=== PATIENT | male | born 1970 | race Caucasian/White ===

== ENCOUNTER 2018-10-23 18:23 | Inpatient (IN) | payer OTHER ==
[~2018-10-23] VITALS: Ht 175.3 cm; Wt 107.0 kg
[2018-10-23] MEDS ORDERED: SODIUM CHLORIDE 0.9% 1000ML 1,000 ML IV STA ×3 (18:42→20:52)
[2018-10-23] MEDS ORDERED: GLIPIZIDE5 MG PO (18:57)
[2018-10-23] MEDS ORDERED: MELATONIN3 M1 PO (18:59)
[2018-10-23] MEDS ORDERED: OMEPRAZOLE40 MG (18:59)
[2018-10-23] MEDS ORDERED: SIMVASTATIN40 MG PO (18:59)
[2018-10-23] MEDS ORDERED: LISINOPRIL10 MG PO (18:59)
[2018-10-23] MEDS ORDERED: METFORMIN HCL500 MG PO (18:59)
[2018-10-23] MEDS ORDERED: ASPIRIN 81 MG CHEW TAB PO ONE (19:00)
--- NOTE | 2018-10-23 19:00 | NUR ---
REPORT GIVEN TO ACE DUBOIS
[2018-10-23 19:12] LABS: BASOPHILS % 0.3 % (0.0-1.0); HEMATOCRIT 56.9 % (38.2-49.6); HEMOGLOBIN 19.2 g/dL (14.0-18.0); LYMPHOCYTES # (AUTO) 1.3 (1.0-3.2); LYMPHOCYTES % 9.7 % (18.0-39.1); MEAN CORPUSCULAR HEMOGLOBIN 30.7 pg (28-32); MEAN CORPUSCULAR HGB CONC 33.7 g/dL (31-35); MEAN CORPUSCULAR VOLUME 90.9 fL (81-99); MONOCYTES # (AUTO) 0.6 (0.2-0.8); MONOCYTES % 4.6 % (4.4-11.3); NEUTROPHILS # (AUTO) 11.2 (2.1-6.9); NEUTROPHILS % 84.2 % (38.7-80.0); PLATELET COUNT 426 x10e3/uL (140-360); RED BLOOD COUNT 6.26 x10e6/uL (4.3-5.7); RED CELL DISTRIBUTION WIDTH 12.9 % (11.7-14.4)
[2018-10-23 19:19] LABS: AMPHETAMINES SCREEN,URINE NEGATIVE (NEGATIVE); BENZODIAZEPINES SCREEN,URINE NEGATIVE (NEGATIVE); PHENCYCLIDINE SCREEN,URINE NEGATIVE (NEGATIVE)
--- NOTE | 2018-10-23 19:20 | Diagnostic Imaging Report ---
A single frontal view of the chest. HISTORY: Shortness of breath COMPARISON: None available. DISCUSSION: Portable technique, limits sensitivity of the exam. Soft tissue attenuation further limits sensitivity of the exam. Overlying monitoring leads. Tubes/Lines: None Lungs and pleura: The lungs are well inflated. No evidence of a consolidative pneumonia or pulmonary alveolar edema. No definite pleural effusion or pneumothorax is identified. Heart and mediastinum: The cardiomediastinal silhouette appears unremarkable. Bones and soft tissues: Appear unremarkable, given this limited exam. IMPRESSION: No acute radiographic abnormality. Signed by: Dr. Gary Batista D.O., M.M.M. on 10/23/2018 7:17 PM
[2018-10-23 19:30] LABS: ALANINE AMINOTRANSFERASE 37 IU/L (0-55); ALBUMIN 5.5 g/dL (3.5-5.0); ALBUMIN/GLOBULIN RATIO 1.1 (0.8-2.0); ALKALINE PHOSPHATASE 138 IU/L (40-150); AMYLASE 98 U/L (25-125); ANION GAP 22.6 mmol/L (8-16); BLOOD UREA NITROGEN 43 mg/dL (7-26); BUN/CREATININE RATIO 9 (6-25); CALCIUM 12.1 mg/dL (8.4-10.2); CARBON DIOXIDE 12 mmol/L (22-29); CHLORIDE 98 mmol/L (98-107); CREATINE KINASE 83 IU/L (30-200); CREATININE, SERUM 4.68 mg/dL (0.72-1.25); EST GLOMERULAR FILTRATION RATE 13 ML/MIN (60-); GLUCOSE 377 mg/dL (74-118); LIPASE 57 U/L (8-78); POTASSIUM 5.6 mmol/L (3.5-5.1); SODIUM 127 mmol/L (136-145)
[2018-10-23] MEDS ORDERED: INSULIN REGULAR, HUMAN 100 UNIT/1 ML 3ML VIAL ONE (19:39)
[2018-10-23] MEDS ORDERED: SODIUM CHLORIDE 0.9% 1000ML 1,000 ML ONE (19:39)
[2018-10-23] MEDS ORDERED: INSULIN REGULAR, HUMAN 100 UNIT/1 ML 3ML VIAL IV ONE (19:45)
[2018-10-23 19:53] LABS: B-TYPE NATRIURETIC PEPTIDE2 < 10.0 pg/mL (0-100)
[2018-10-23] MEDS ORDERED: VANCOMYCIN 1GM/NS 250 ML 250 ML IV ONE (20:00)
[2018-10-23 20:12] LABS: ABG HCO3 8 mmol/L (23-28); ABG PCO2 26 mmHg (41-51); ABG PH 7.11 (7.31-7.41); ABG PO2 112 mmHg (80-105)
[2018-10-23] MEDS ORDERED: DIATRIZOATE MEGL/DIATRIZOA SOD 30 ML BTL PO ONE (20:21)
[2018-10-23] MEDS ORDERED: SODIUM CHLORIDE 0.9% 1000ML 1,000 ML IV SCH (20:25)
[2018-10-23] MEDS ORDERED: INSULIN REGULAR, HUMAN 3ML VL 300 UNIT in SODIUM CHLORIDE 0.45% 100 ML 300 ML IV SCH ×2 (20:25)
[2018-10-23] MEDS ORDERED: MAGNESIUM SULF 1GRAM/DEXTROSE 100 ML IV PRN (20:30)
[2018-10-23] MEDS ORDERED: DEXTROSE 50% SYRINGE 50 ML IV PRN (20:30)
[2018-10-23] MEDS ORDERED: POTASSIUM CHLORIDE 20MEQ/100ML 200 ML IV PRN (20:30)
[2018-10-23 20:34] LABS: INR 0.94; PARTIAL THROMBOPLASTIN TIME 26.7 seconds (23.8-35.5); PROTHROMBIN TIME 13.1 seconds (11.9-14.5)
[2018-10-23] MEDS: CEFEPIME 2 GM/NS 0.9% 100 ML 100 ML IV SCH (20:34)
[2018-10-23] MEDS ORDERED: INSULIN REGULAR, HUMAN 3ML VL 100 UNIT in SODIUM CHLORIDE 0.45% 100 ML 100 ML IV SCH ×2 (20:45)
[2018-10-23] MEDS ORDERED: ONDANSETRON HCL INJ 2MG/ML 2ML 2 MG/ML VIAL IV PRN (21:00)
[2018-10-23] MEDS ORDERED: PROMETHAZINE 12.5MG/ NACL 0.9% 12.5 MG/50 ML BAG IV PRN (21:00)
--- OUTSIDE RECORDS SUMMARY | 2018-10-23 21:14 | XMS REPORT ---
Author Author [facility] Address Unknown Phone Unavailable Care Team Providers Care Accreditation Coordinator Name Role Phone Vignesh RODARTE Unavailable Unavailable Problems This patient has no known problems. Allergies, Adverse Reactions, Alerts This patient has no known allergies or adverse reactions. Medications This patient has no known medications. Results Test Description Test Time Test Comments Text Results Atomic Results Result Comments CHEST SINGLE (PORTABLE) 2018-10-23 19:16:00 [facility] [address] [address] Patient Name: VERONICA COVINGTON JR MR #: [id number] : 1970 Age/Sex: 48/M Req #: [id number] Adm Physician: Ordered by: SHARMIN RODARTE MD Report #: [id number] Location: ER Room/Bed: Procedure: [id number] DX/CHEST SINGLE (PORTABLE) Exam Date: 10/23/18 Exam Time: 1900 REPORT STATUS: Signed A single frontal view of the chest. HISTORY: Shortness of breath COMPARISON: None available. DISCUSSION: Portable technique, limits sensitivity of the exam. Soft tissue attenuation further limits sensitivity of the exam. Overlying monitoring leads. Tubes/Lines: None Lungs and pleura: The lungs are well inflated. No evidence of a consolidative pneumonia or pulmonary alveolar edema. No definite pleural effusion or pneumothorax is identified. Heart and mediastinum: The cardiomediastinal silhouette appears unremarkable. Bones and soft tissues: Appear unremarkable, given this limited exam. IMPRESSION: No acute radiographic abnormality. Signed by: Dr. Lonnie Batista D.O., M.M.M. on 10/23/2018 7:17 PM Dictated By: LONNIE BATISTA DO 16 Transcribed By: LIZZ on 10/23/181916 COPY TO: SHARMIN RODARTE MD
[2018-10-23 22:31] LABS: BILIRUBIN,URINE MODERATE (NEGATIVE); CLARITY,URINE CLOUDY (CLEAR); COLOR,URINE YELLOW (YELLOW); KETONES,URINE TRACE (NEGATIVE); LEUKOCYTE ESTERASE ,URINE NEGATIVE (NEGATIVE); NITRITE,URINE NEGATIVE (NEGATIVE); URINE UROBILINOGEN 0.2 mg/dL (0.2 - 1)
[2018-10-23 22:34] LABS: PROTEIN,URINE DIPSTICK 3+ (NEGATIVE)
--- NOTE | 2018-10-23 22:43 | NUR ---
bs 200. insulin drip decreased to 2units per hour per protocol.
[2018-10-23 23:00] LABS: AMMONIUM BIURATE CRYSTALS,UR FEW; BACTERIA,URINE MANY /HPF; EPITHELIAL CELLS,URINE FEW /LPF; TRANSITIONAL EPI CELLS,URINE FEW; URIC ACID CRYSTALS,URINE FEW (FEW)
[2018-10-23 23:24] LABS: CREATININE, SERUM 3.88 mg/dL (0.72-1.25)
--- NOTE | 2018-10-23 23:27 | Diagnostic Imaging Report ---
EXAM: CT Abdomen and Pelvis WITHOUT contrast INDICATION: Abdominal pain, nausea vomiting and diarrhea. Elevated WBC. COMPARISON: None. TECHNIQUE: Abdomen and pelvis were scanned utilizing a multidetector helical scanner from the lung base to the pubic symphysis without administration of IV contrast. Absence of intravenous contrast decreases sensitivity for detection of focal lesions and vascular pathology. Coronal and sagittal reformations were obtained. Routine protocol was performed. IV CONTRAST: None. Withheld due to renal insufficiency. ORAL CONTRAST: 900 cc of Gastrografin water mixture. RADIATION DOSE: Total DLP: 887.58 mGy*cm Estimated effective dose: (DLP x 0.015 x size factor) mSv COMPLICATIONS: None FINDINGS: LINES and TUBES: None. LOWER THORAX: Unremarkable HEPATOBILIARY: The liver is diffuse hypodense compared to the spleen, consistent with diffuse hepatic diffuse hepatic steatosis. No focal hepatic lesions. No biliary ductal dilation. GALLBLADDER: No radio-opaque stones or sludge. No wall thickening. SPLEEN: No splenomegaly. PANCREAS: No focal masses or ductal dilatation. ADRENALS: No adrenal nodules KIDNEYS/URETERS: No hydronephrosis. No cystic or solid mass lesions. Punctate nonobstructing calculus in the interpolar region of the left kidney on coronal image 74. GI TRACT: No abnormal distention, wall thickening, or evidence of bowel obstruction. There few scattered diverticula in the sigmoid colon without evidence of diverticulitis. Appendix is normal. PELVIC ORGANS/BLADDER: No gross abnormality within limitations due to artifact from bilateral hip prosthesis. LYMPH NODES: No lymphadenopathy. VESSELS: There is mild atherosclerotic disease in the aorta and major arterial branches. PERITONEUM / RETROPERITONEUM: No free air or fluid. BONES: Bilateral total hip replacement. Mild degenerative changes of the imaged thoracolumbar spine. SOFT TISSUES: Unremarkable. IMPRESSION: 1. No acute abdominal pelvic abnormality. 2. Hepatic steatosis. Signed by: Dr. Sherrell Ariza M.D. on 10/23/2018 11:24 PM
[2018-10-23 23:30] VITALS: BP_SYST 109; BP_SYST 119; BP_DIAS 72; BP_DIAS 74
[2018-10-23 23:30] LABS: CALCIUM 9.5 mg/dL (8.4-10.2)
[2018-10-23] MEDS ORDERED: DEXTROSE 5%/0.45% SOD CHL 1,000 ML IV SCH (23:30)
[2018-10-23] MEDS ORDERED: PNEUMOCOCCAL VACCINE POLYVALENT 23 MCG/0.5 ML VIAL IM SCH (23:52)
[2018-10-23 23:54] VITALS: BP 109/72
[2018-10-23 23:59] VITALS: BP 109/72
[2018-10-24] VITALS (21 sets, daily range): BP systolic 77–134; BP diastolic 46–93
[2018-10-24 02:54] LABS: CREATINE KINASE 90 IU/L (30-200)
[2018-10-24 03:16] LABS: ANION GAP 18.5 mmol/L (8-16); CALCIUM 9.9 mg/dL (8.4-10.2); CREATININE, SERUM 4.1 mg/dL (0.72-1.25); MAGNESIUM 2.2 MG/DL (1.3-2.1); POTASSIUM 4.5 mmol/L (3.5-5.1)
[2018-10-24] MEDS: SODIUM CHLORIDE 0.9% 1000ML 1,000 ML IV SCH ×4 (03:49→21:50)
[2018-10-24 05:06] LABS: BASOPHILS % 0.3 % (0.0-1.0); HEMATOCRIT 51.2 % (38.2-49.6); HEMOGLOBIN 16.6 g/dL (14.0-18.0); LYMPHOCYTES # (AUTO) 2.5 (1.0-3.2); LYMPHOCYTES % 16.7 % (18.0-39.1); MEAN CORPUSCULAR HEMOGLOBIN 30.5 pg (28-32); MEAN CORPUSCULAR HGB CONC 32.4 g/dL (31-35); MONOCYTES # (AUTO) 1.4 (0.2-0.8); MONOCYTES % 9.5 % (4.4-11.3); NEUTROPHILS # (AUTO) 10.9 (2.1-6.9); NEUTROPHILS % 72.6 % (38.7-80.0); PLATELET COUNT 357 x10e3/uL (140-360); RED BLOOD COUNT 5.45 x10e6/uL (4.3-5.7); RED CELL DISTRIBUTION WIDTH 13.1 % (11.7-14.4)
[2018-10-24 05:10] LABS: MEAN CORPUSCULAR VOLUME 93.9 fL (81-99)
[2018-10-24 05:36] LABS: CREATINE KINASE MB 2.5 ng/mL (0-5.0)
[2018-10-24 05:39] LABS: ANION GAP 19.9 mmol/L (8-16); CREATININE, SERUM 4.23 mg/dL (0.72-1.25); MAGNESIUM 2.3 MG/DL (1.3-2.1); POTASSIUM 4.9 mmol/L (3.5-5.1)
[2018-10-24] MEDS: CEFEPIME 2 GM/NS 0.9% 100 ML 100 ML IV SCH ×2 (08:27→19:54)
--- NOTE | 2018-10-24 08:48 | NUR ---
CONSULTS CALLED FOR DR. LITTLE AND .
[2018-10-24 08:54] LABS: ANION GAP 16.5 mmol/L (8-16); CALCIUM 9.9 mg/dL (8.4-10.2); CREATININE, SERUM 4.31 mg/dL (0.72-1.25); MAGNESIUM 2.3 MG/DL (1.3-2.1); POTASSIUM 4.5 mmol/L (3.5-5.1)
[2018-10-24] MEDS ORDERED: SODIUM BICARBONATE 8.4% SYRING 150 ML in STERILE WATER IV SOLN 1,000 ML IV ONE (10:00)
[2018-10-24] MEDS: LIDOCAINE 5% PATCH TP SCH (10:14)
[2018-10-24] MEDS ORDERED: VITAMIN B-121000 MCG PO (10:20)
[2018-10-24] MEDS ORDERED: alogliptin PO (10:20)
[2018-10-24] MEDS ORDERED: PRAZOSIN HCL2 MG PO (10:20)
[2018-10-24] MEDS ORDERED: FLUOXETINE HCL20 M1 PO (10:20)
--- NOTE | 2018-10-24 13:20 | NUR ---
WOUND CARE PUP SCREEN Eduardo Score: 20 PUP: Conservative LOS: 13 Hours Age: 48 VISCO mattress HOB < 30 Degrees Patient Position: Back PATIENT VISIT / SKIN CHECK: No Pressure Ulcers Identified. Up ad Nicole. No Limitations. Able to turn and reposition self. RECOMMENDATION: - Continue Conservative PUP Addendum: 10/24/18 at 1320 by Frank Nelson RN Amended: Links added.
[2018-10-24 13:58] LABS: CREATINE KINASE 144 IU/L (30-200)
--- NOTE | 2018-10-24 14:47 | NUR ---
Nutrition Screen Note RD Recommendation for Physician: -Rec ADAT to GI soft/ ADA 1800 -Handouts on diabetic diet was provided Plan of Care: RD following, monitoring for tolerance and adequacy Nutrition reason for involvement: Diagnosis Primary Diagnose(s): Acute renal failure, DKA, dehydration PMH: DM Ht: 69in Wt: 235lb BMI: 34.7kg/m2 IBW: 160lb RD Assessment: (10/24) Chart reviewed. Labs and meds reviewed. 48yo M, who was admitted for nausea, vomiting and diarrhea x 3 days. Visited pt in the room. Pt tolerated clear liquid without any nausea or vomiting. Pt still has diarrhea today. 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 Weight has been stable at 235lbs. Currently on IVF @150mL/hr and insulin. RD offered diabetic education but pt was not interested. Handouts were provided. Will continue to monitor and follow. Current Diet: clear liquid Malnutrition Evaluation (10/24/2018) The patient does not meet criteria for a specified degree of malnutrition at this time. Will re-evaluate at follow-up as appropriate. Diet Education Needs Assessment: Diet education indicated, pt was not interested. Nutrition Care Level: low Signed: Isabel Giordano, MS, RD, LD
--- NOTE | 2018-10-24 15:40 | Consultation ---
DATE OF CONSULTATION: 10/24/2018 Renal Consultation REASON FOR CONSULTATION: Acute kidney injury, acidosis. HISTORY OF PRESENT ILLNESS: A 48-year-old male with history of diabetes, hypertension, presented to [facility] with nausea, vomiting, and diarrhea. The patient was in his usual state of health until this past weekend after crawfish boil, he started having diarrhea, noted more than 12 times in one day as well as nausea and vomiting. The patient became weaker and weaker and eventually was brought to the emergency room by his . The patient denies ever having any kidney disease in the past and denies taking anything over the counter, specifically NSAIDs. The patient was short of breath and at this time is not having any shortness of breath, nausea, vomiting. He continues to have diarrhea. REVIEW OF SYSTEMS: A 14-point review of systems completed. All systems negative other than mentioned in the HPI. PAST MEDICAL HISTORY: 1. Diabetes. 2. Hypertension. 3. Dyslipidemia. 4. Depression. 5. PTSD. PAST SURGICAL HISTORY: Bilateral hip replacement. SOCIAL HISTORY: No tobacco. No alcohol. Chews tobacco. Works as a patrol police lieutenant. FAMILY HISTORY: No family history of kidney disease. ALLERGIES: NO KNOWN DRUG ALLERGIES. CURRENT MEDICATIONS: See list, includes normal saline at 100. PHYSICAL EXAMINATION: VITALS: Blood pressure 114/57, pulse 95, respiratory rate 22, temperature 98.4. GENERAL: No apparent distress. HEENT: Oropharynx is clear. No scleral icterus. No peripheral edema. Oropharynx with dry mucosa. NECK: Supple. No elevation in jugular venous pressure. No lymphadenopathy. CHEST: Clear to auscultation anteriorly bilaterally. CARDIOVASCULAR: Regular rhythm. No murmurs or rubs. ABDOMEN: Soft. Positive bowel sounds. No tenderness. No rebound. EXTREMITIES: No edema, no clubbing, no cyanosis. SKIN: Warm. IMAGING: Chest x-ray clear. CT abdomen and pelvis without contrast shows no acute abdominal pelvic abnormality, kidneys show no hydronephrosis, punctate nonobstructing calculus in the left kidney. LABS: Sodium 132; potassium 4.5; chloride 110; CO2 of 10, was 9; BUN 48; creatinine 4.31; estimated GFR 15; calcium 10; magnesium 2.3. Troponin 0.01. Albumin 5.5. BNP less than 10. Lactic acid 24.6, down to 13.5. White count 15; hemoglobin 16, was 19.2; platelets 357. Urine; specific gravity greater than 1.030, 3+ protein, 1+ glucose, hyaline casts. ASSESSMENT AND PLAN: 1. Acute kidney injury, suspect secondary to volume depletion plus or minus diabetic ketoacidosis from acute tubular necrosis from severe volume depletion and diabetic ketoacidosis. Continue with aggressive IV fluids. We will check urine studies. CT scan with no evidence of obstruction. No indication at this time for renal replacement therapy. 2. Metabolic acidosis versus both anion gap and non-anion gap acidosis secondary to severe diarrhea, kidney failure, and diabetic ketoacidosis. Pt also on metformin. We will give 1 L of bicarbonate and continue to follow with q.4 h. labs. 3. Hyponatremia secondary to kidney failure and hyperglycemia. Correct no faster than 0.5 mmol/L per hour. 4. Volume depletion. We will give IV fluids as above. 5. Leukocytosis, on broad-spectrum antibiotics. Cultures pending. 6. Diabetes, diabetic ketoacidosis. Continue insulin drip. MD CHARLIE Aparicio/MODL /[id number] BRIANNA
[2018-10-24 16:18] LABS: ANION GAP 15.3 mmol/L (8-16); CALCIUM 9.6 mg/dL (8.4-10.2); CREATININE, SERUM 4.38 mg/dL (0.72-1.25); MAGNESIUM 2.4 MG/DL (1.3-2.1); POTASSIUM 4.3 mmol/L (3.5-5.1)
[2018-10-24] MEDS ORDERED: SODIUM BICARBONATE 8.4% 150 ML in STERILE WATER IV SOLN 1,000 ML IV SCH ×2 (17:00→17:15)
[2018-10-24] MEDS ORDERED: MELATONIN 5 MG TABLET PO PRN (19:15)
[2018-10-24 19:52] LABS: CREATININE,URINE RANDOM 193.93 mg/dL (63-166); TOTAL PROTEIN, URINE 47.2 mg/dL (1-14)
[2018-10-24] MEDS ORDERED: MELATONIN 3 MG TAB PO SCH (21:00)
[2018-10-24] MEDS ORDERED: SIMVASTATIN 40 MG TAB PO SCH (21:00)
[2018-10-24] MEDS ORDERED: PRAZOSIN HCL 2 MG PO SCH (21:00)
[2018-10-24] MEDS: PRAZOSIN HCL 1 MG CAP PO SCH (21:10)
[2018-10-24 21:11] LABS: BASOPHILS % 0.3 % (0.0-1.0); EOSINOPHILS % 0.3 % (0.0-6.0); HEMOGLOBIN 16.7 g/dL (14.0-18.0); LYMPHOCYTES # (AUTO) 2.1 (1.0-3.2); LYMPHOCYTES % 18.5 % (18.0-39.1); MEAN CORPUSCULAR HGB CONC 34.1 g/dL (31-35); MEAN CORPUSCULAR VOLUME 90.9 fL (81-99); MONOCYTES # (AUTO) 1.3 (0.2-0.8); MONOCYTES % 11.6 % (4.4-11.3); NEUTROPHILS # (AUTO) 7.9 (2.1-6.9); NEUTROPHILS % 68.7 % (38.7-80.0); PLATELET COUNT 298 x10e3/uL (140-360); RED BLOOD COUNT 5.39 x10e6/uL (4.3-5.7); RED CELL DISTRIBUTION WIDTH 13.1 % (11.7-14.4)
--- NOTE | 2018-10-24 21:17 | Consultation ---
DATE OF CONSULTATION: 10/24/2018 Endocrine consultation. The patient of Dr. Lorenzo. HISTORY OF PRESENT ILLNESS: Thank you very much for referring this patient. This is a 48-year-old white male gentleman, who was referred to me for evaluation of uncontrolled diabetes mellitus and diabetic ketoacidosis. The patient came to the hospital with history of nausea, vomiting, abdominal pain, which is getting progressively worse. He also had a coffee-ground emesis. The patient is a known diabetic for almost a couple of years and is taking glyburide and metformin at home. He does have family history of diabetes mellitus. On further evaluation in the hospital, the blood sugar was found to be around 377, and anion gap was 22.4 and his BUN and creatinine were significantly elevated at 43 and 4.6. On physical examination, the patient does not have any other major medical problems except for hyperlipidemia and hypertension. PHYSICAL EXAMINATION: GENERAL: Today, the patient is alert, awake, little bit apprehensive. He is moderately overweight. VITAL SIGNS: His heart rate is around 100. Blood pressure 130/80 mmHg. HEENT EXAMINATION: Essentially unremarkable. Thyroid is palpable. Clinically, he is near euthyroid. CHEST: Bilateral vesicular breathing. No rales heard. CARDIAC: First and second heart sounds. There are no third or fourth heart sound with the systolic grade of 2/6. NEUROLOGIC: The patient has evidence of diabetic sensorimotor neuropathy in both lower extremities. CLINICAL IMPRESSION: Diabetes mellitus type 2, diabetic ketoacidosis, acute on chronic renal failure, hyperlipidemia, and obesity. PLAN: At this time is to continue IV insulin and IV fluids. Monitor his blood sugars closely. We will also do a hemoglobin A1c and thyroid function test and lipid profile. Thanks for referring this patient. I will be following this patient with you. MD DAMASO Blair/ISAMAR /[id number] BRIANNA
[2018-10-24 21:31] LABS: ANION GAP 15.9 mmol/L (8-16); CALCIUM 9.4 mg/dL (8.4-10.2); CREATININE, SERUM 4.33 mg/dL (0.72-1.25); POTASSIUM 3.9 mmol/L (3.5-5.1)
[2018-10-24 21:42] LABS: MAGNESIUM 2.3 MG/DL (1.3-2.1); PHOSPHORUS 7.2 MG/DL (2.3-4.7)
[2018-10-25] VITALS (26 sets, daily range): BP systolic 87–131; BP diastolic 37–88
--- NOTE | 2018-10-25 01:53 | History and Physical ---
HISTORY OF PRESENT ILLNESS: A 48-year-old male, who has a past medical history positive for hypertension and diabetes, came here with vomiting, abdominal pain, diarrhea. He was found to be in diabetic ketoacidosis and kyxvk-bf-tvjxfub renal failure, started on insulin drip and admitted to intensive care unit. REVIEW OF SYSTEMS: CARDIOVASCULAR: No chest pain or palpitation. RESPIRATORY: No shortness of breath. No cough. GASTROINTESTINAL: He has nausea, vomiting, abdominal pain, and diarrhea. GENITOURINARY: No frequency. No dysuria. ALLERGIES: HE IS NOT ALLERGIC TO ANY MEDICATION. SOCIAL HISTORY: He does not smoke. He drinks socially. PAST MEDICAL HISTORY: Diabetes and hypertension. PHYSICAL EXAMINATION: VITAL SIGNS: Blood pressure 107/67, temperature 98.2, heart rate 84 per minute, respiratory rate 25 per minute, oxygen saturation is 99%. HEART: Showed regular rhythm. No murmur or added sound. LUNGS: Clear bilaterally. ABDOMEN: Soft. EXTREMITIES: Show no evidence of cyanosis or hematoma. LABORATORY DATA: On BMP; sodium 130, potassium 4.3, chloride 107, CO2 of 12, BUN 51, creatinine 4.38, glucose 150. On CBC; white blood count 15.0, hemoglobin 16.6, hematocrit 31.2, platelet count 357,000. PT 13.1 INR 0.94, PTT 26.7. AST 19, ALT 37, total bilirubin 1.0, alkaline phosphatase 138. Troponins are negative. Chest x-ray showed no acute radiographic abnormality. Also, CT of the abdomen and pelvis was done, which showed no acute abdominal pelvic abnormality, hepatic steatosis, punctate nonobstructing calculus in the interpolar region of the left kidney. IMPRESSION: 1. Diabetic ketoacidosis. 2. Jdvya-pe-jruncim renal failure stage 4. 3. Obesity. 4. Vomiting. 5. Abdominal pain. 6. Diarrhea. PLAN OF TREATMENT: Continue with insulin drip. Continue cefepime 1 g IV twice a day. Continue potassium and magnesium supplementation as needed. Continue to monitor blood sugar q.2 hours. Continue sodium chloride 150 mL/h until after the blood sugar is 250 and then we are going to change to D5 normal saline. Continue with Zofran 4 mg IV q.4 hours as needed, promethazine 12.5 mg IV as needed. Dr. Augustine has been consulted from the Endocrinology point of view as well from renal point of view. The patient will remain in the ICU until off the insulin drip. MD JARRETT Malave/MODL /[id number]
[2018-10-25] MEDS: SODIUM CHLORIDE 0.9% 1000ML 1,000 ML IV SCH (04:37)
[2018-10-25 04:54] LABS: BASOPHILS % 0.3 % (0.0-1.0); EOSINOPHILS % 0.1 % (0.0-6.0); HEMATOCRIT 45.3 % (38.2-49.6); HEMOGLOBIN 15.2 g/dL (14.0-18.0); LYMPHOCYTES # (AUTO) 1.4 (1.0-3.2); LYMPHOCYTES % 14.7 % (18.0-39.1); MEAN CORPUSCULAR HEMOGLOBIN 30.7 pg (28-32); MEAN CORPUSCULAR HGB CONC 33.6 g/dL (31-35); MEAN CORPUSCULAR VOLUME 91.5 fL (81-99); MONOCYTES # (AUTO) 0.7 (0.2-0.8); MONOCYTES % 7.9 % (4.4-11.3); NEUTROPHILS % 76.3 % (38.7-80.0); PLATELET COUNT 277 x10e3/uL (140-360); RED BLOOD COUNT 4.95 x10e6/uL (4.3-5.7)
[2018-10-25 05:02] LABS: INR 1.03; PARTIAL THROMBOPLASTIN TIME 26.2 seconds (23.8-35.5)
[2018-10-25 05:11] LABS: ALBUMIN/GLOBULIN RATIO 1.1 (0.8-2.0); ANION GAP 17.6 mmol/L (8-16); CALCIUM 8.8 mg/dL (8.4-10.2); CREATININE, SERUM 5.14 mg/dL (0.72-1.25); MAGNESIUM 2.1 MG/DL (1.3-2.1); PHOSPHORUS 7.8 MG/DL (2.3-4.7); POTASSIUM 3.6 mmol/L (3.5-5.1)
[2018-10-25 05:13] LABS: ALBUMIN 3.7 g/dL (3.5-5.0)
--- NOTE | 2018-10-25 05:30 | NUR ---
Offered bath. Refused at this time. States "I'll wait for my ".
[2018-10-25] MEDS: FLUOXETINE HCL 20 MG CAP PO SCH (08:14)
[2018-10-25] MEDS: PANTOPRAZOLE SOD 40 MG TABEC PO SCH (08:14)
[2018-10-25] MEDS: LIDOCAINE 5% PATCH TP SCH (08:14)
[2018-10-25] MEDS: CYANOCOBALAMIN 1,000 MCG TAB PO SCH (08:14)
[2018-10-25] MEDS: CEFEPIME 2 GM/NS 0.9% 100 ML 100 ML IV SCH ×2 (08:23→20:32)
[2018-10-25] MEDS ORDERED: SODIUM BICARBONATE 8.4% 150 ML in STERILE WATER IV SOLN 1,000 ML IV ONE (08:40)
[2018-10-25] MEDS: SODIUM BICARBONATE 8.4% 150 ML in STERILE WATER IV SOLN 1,000 ML IV SCH ×4 (10:30→23:47)
[2018-10-25 12:07] LABS: ANION GAP 17.8 mmol/L (8-16); CREATININE, SERUM 5.17 mg/dL (0.72-1.25); POTASSIUM 3.8 mmol/L (3.5-5.1)
[2018-10-25] MEDS: SEVELAMER CARBONATE 800 MG TAB PO SCH ×2 (12:09→16:30)
[2018-10-25] MEDS ORDERED: LIDOCAINE HCL 1% LOCAL INJ 20 ML VIAL ONE (13:45)
--- NOTE | 2018-10-25 16:06 | Diagnostic Imaging Report ---
Exam: Non tunneled right IJ hemodialysis catheter placement. History:HOMER Comparison: None available Findings: Informed consent was obtained from the patient after a formal timeout. Ultrasound was utilized for puncture of the right internal jugular vein following sterile preparation with full barrier technique and 1% lidocaine. Permanent record for the radiologic record was obtained and stored. Following puncture with a 21-gauge skinny needle a 0.018 " wire was placed and then a micropuncture sheath. Fluoroscopy was utilized to ascertain wire placement. Through the micropuncture sheath a 0.035 " Amplatz superstiff wire was placed centrally. Serial dilatation was accomplished. A 13 Singaporean 20 cm long non tunneled hemodialysis catheter was then placed over the Amplatz superstiff wire. Patient tolerated the procedure well. Fluoroscopy time: 0.1 min Total dose: 0.154 Gy.cm2 Impression: 1. Right IJ non tunneled hemodialysis catheter placement utilizing ultrasound and fluoroscopy. 2. The line is okay for immediate use. Signed by: Dr. Cyril Jiang DO on 10/25/2018 4:02 PM
[2018-10-25 16:59] LABS: ANION GAP 17.3 mmol/L (8-16); CALCIUM 8.7 mg/dL (8.4-10.2); CREATININE, SERUM 4.48 mg/dL (0.72-1.25); MAGNESIUM 2.1 MG/DL (1.3-2.1); POTASSIUM 3.3 mmol/L (3.5-5.1)
[2018-10-25] MEDS ORDERED: DIPHENOXYLATE/ATROPINE TAB PO PRN (17:30)
[2018-10-25] MEDS: LOPERAMIDE HCL 2 MG CAP PO PRN ×2 (17:46→23:10)
[2018-10-25] MEDS ORDERED: POTASSIUM CHLORIDE 20 MEQ TAB CR PO SCH (18:00)
--- NOTE | 2018-10-25 19:08 | Progress Note ---
DATE: Internal Medicine Progress Note SUBJECTIVE: The patient is off the insulin drip. He is on Lantus right now complaining of diarrhea. OBJECTIVE: VITAL SIGNS: Blood pressure is 122/78, temperature 98.5, heart rate 72 per minute, respiratory rate 16 per minute, and oxygen saturation 100%. HEART: Showed regular rhythm. Normal S1, S2 sound. LUNGS: Clear bilaterally. ABDOMEN: Soft. EXTREMITIES: Show no evidence of cyanosis or hematoma. LABORATORY DATA: On the blood work, we have BMP; sodium 131, potassium 3.8, chloride 105, CO2 12, BUN 56, and creatinine 5.17. Glucose 187. On CBC, white blood count 9.19, hemoglobin 15.2, hematocrit 45.3, and platelet count of 277,000. PT 14.0. INR 1.03. PTT 26.2. AST 14 and ALT 22. Total bilirubin 0.8. Alkaline phosphatase 94. ASSESSMENT: 1. Diabetic ketoacidosis. 2. Acute on chronic renal insufficiency, stage 4-5. 3. Diarrhea. 4. Anemia. 5. Obesity. 6. Gastroesophageal reflux disease. 7. Benign prostatic hypertrophy. 8. Hypertension. PLAN OF TREATMENT: Continue cefepime 2 g IV twice a day, magnesium sulfate as needed, and potassium as needed for hypokalemia. Continue monitoring the sugars q.a.c. and at bedtime. Fluoxetine 60 mg daily, sevelamer 600 mg three times a day, sodium bicarbonate as needed, Protonix 40 mg daily, continue Lantus 10 units at bedtime, D50 push as needed for hypoglycemia, melatonin 5 mg at bedtime, vitamin B12 1000 mcg daily, prazosin 2 mg daily, and Zofran 4 mg IV q.4 hours as needed. The patient had a dialysis catheter placed just in case he needs dialysis. We are going to continue monitoring BUN and creatinine. Lucas Lorenzo MD LAS/MODL /[id number]
[2018-10-25] MEDS: PRAZOSIN HCL 1 MG CAP PO SCH (20:32)
[2018-10-25] MEDS ORDERED: INSULIN GLARGINE 100 UNITS/ML VIAL SQ SCH (21:00)
[2018-10-25 23:09] LABS: ANION GAP 17.3 mmol/L (8-16); CALCIUM 8.7 mg/dL (8.4-10.2); CREATININE, SERUM 3.94 mg/dL (0.72-1.25); MAGNESIUM 1.9 MG/DL (1.3-2.1); POTASSIUM 3.3 mmol/L (3.5-5.1)
[2018-10-26] VITALS (23 sets, daily range): BP systolic 103–140; BP diastolic 49–94
--- NOTE | 2018-10-26 01:15 | NUR ---
Left AC IV infiltrated, IV d/c'ed. 20 g started in left forearm. IV patent, CDI.
[2018-10-26 05:00] LABS: BASOPHILS % 0.5 % (0.0-1.0); EOSINOPHILS # (AUTO) 0.1 (0.0-0.4); EOSINOPHILS % 1.7 % (0.0-6.0); HEMATOCRIT 41.8 % (38.2-49.6); HEMOGLOBIN 14.5 g/dL (14.0-18.0); LYMPHOCYTES % 23.9 % (18.0-39.1); MEAN CORPUSCULAR HEMOGLOBIN 30.3 pg (28-32); MEAN CORPUSCULAR HGB CONC 34.7 g/dL (31-35); MONOCYTES # (AUTO) 1.2 (0.2-0.8); MONOCYTES % 14.1 % (4.4-11.3); NEUTROPHILS # (AUTO) 4.9 (2.1-6.9); PLATELET COUNT 229 x10e3/uL (140-360); RED BLOOD COUNT 4.78 x10e6/uL (4.3-5.7); RED CELL DISTRIBUTION WIDTH 12.5 % (11.7-14.4)
[2018-10-26 05:02] LABS: MEAN CORPUSCULAR VOLUME 87.4 fL (81-99)
[2018-10-26 05:25] LABS: ALBUMIN 3.2 g/dL (3.5-5.0); ANION GAP 14.8 mmol/L (8-16); CALCIUM 8.5 mg/dL (8.4-10.2); CREATININE, SERUM 3.25 mg/dL (0.72-1.25)
[2018-10-26 05:34] LABS: POTASSIUM 2.8 mmol/L (3.5-5.1)
[2018-10-26] MEDS ORDERED: POTASSIUM CHLORIDE 20MEQ/100ML 200 ML ONE (05:42)
[2018-10-26] MEDS: INSULIN REGULAR, HUMAN 3ML VL 100 UNIT in SODIUM CHLORIDE 0.9% 100 ML 100 ML IV SCH ×6 (07:30→13:33)
[2018-10-26] MEDS ORDERED: POTASSIUM CHLORIDE 20 MEQ TAB CR PO NR (08:00)
[2018-10-26] MEDS ORDERED: POTASSIUM CHLORIDE 20MEQ/100ML 100 ML IV ONE (08:00)
[2018-10-26] MEDS: PANTOPRAZOLE SOD 40 MG TABEC PO SCH (08:19)
[2018-10-26] MEDS: FLUOXETINE HCL 20 MG CAP PO SCH (08:19)
[2018-10-26] MEDS: CYANOCOBALAMIN 1,000 MCG TAB PO SCH (08:19)
[2018-10-26] MEDS: CEFEPIME 2 GM/NS 0.9% 100 ML 100 ML IV SCH ×2 (08:28→20:39)
[2018-10-26] MEDS: LIDOCAINE 5% PATCH TP SCH (08:28)
[2018-10-26] MEDS: LOPERAMIDE HCL 2 MG CAP PO PRN (08:29)
[2018-10-26] MEDS ORDERED: INSULIN ASPART 70/30 100 UNITS/ML VIAL SC NR (13:45)
[2018-10-26] MEDS: SODIUM CHLORIDE 0.9% 1000ML 1,000 ML IV SCH (14:00)
[2018-10-26] MEDS ORDERED: INSULIN LISPRO 100 UNIT/1 ML 3ML VIAL SQ ONE (16:00)
[2018-10-26 16:27] LABS: ALBUMIN 3.1 g/dL (3.5-5.0); ANION GAP 11.3 mmol/L (8-16); CALCIUM 8.5 mg/dL (8.4-10.2); CREATININE, SERUM 2.65 mg/dL (0.72-1.25); POTASSIUM 3.3 mmol/L (3.5-5.1)
[2018-10-26] MEDS: INSULIN LISPRO 100 UNIT/1 ML 3ML VIAL SQ SCH ×3 (16:58→20:45)
[2018-10-26] MEDS ORDERED: POTASSIUM CHLORIDE 20 MEQ TAB CR PO SCH (17:30)
--- NOTE | 2018-10-26 20:29 | Progress Note ---
DATE: Internal Medicine Progress Note SUBJECTIVE: The patient is doing well. No significant complaint. PHYSICAL EXAMINATION: HEART: Showed regular rhythm. Normal S1 and S2 sounds. LUNGS: Clear bilaterally. ABDOMEN: Soft. EXTREMITIES: Show no evidence of cyanosis or hematoma. VITAL SIGNS: Blood pressure 109/73, temperature 97.9, heart rate 70 per minute, respiratory rate 16 per minute, oxygen saturation 99%. LABORATORY DATA: On the blood work, we have BMP; sodium 134, potassium 2.8, chloride 104, CO2 of 18, BUN 62, creatinine 3.25, glucose 126. On CBC, white blood count 8.32, hemoglobin 14.5, hematocrit 41.8, platelet count 229,000. PT 14.0, INR 1.03, PTT is 26.2, AST 14, ALT 19, total bilirubin 1.0, alkaline phosphatase 84. IMPRESSION: 1. Diabetes ketoacidosis with chronic renal insufficiency. 2. Chronic renal insufficiency, stage IV to V. 3. Hypokalemia. 4. Obesity. 5. Mild hyponatremia. PLAN OF TREATMENT: 1. We are going to wean him off the insulin drip and after that he can go out of the intensive care unit to the telemetry floor. 2. Continue cefepime twice a day. 3. Continue insulin drip until it will be completely weaned off by Dr. Augustine. 4. Continue fluoxetine 60 mg daily. 5. Continue Lomotil 3 times a day as needed for diarrhea. 6. Continue with Humalog 7 units before each meal and Protonix 40 mg daily, melatonin 5 mg at bedtime. 7. Continue monitoring blood sugar before meals and at bedtime. 8. Continue Lantus at 13 units at bedtime, vitamin B12 1000 mcg daily, prazosin 2 mg daily, Zofran 4 mg IV q.4 hours as needed. 9. Continue potassium replacement and magnesium replacement as needed. 10. Continue monitoring BUN, creatinine and electrolytes. The patient does not meet the criteria for dialysis right now. 11. The hemodialysis catheter most likely will be removed by Dr. Dutta. 12. The patient is doing much better, tolerating a diet. Time spent around 59 minutes. Lucas Lorenzo MD LAS/MODL /[id number]
[2018-10-26] MEDS: PRAZOSIN HCL 1 MG CAP PO SCH (20:39)
[2018-10-26] MEDS: INSULIN GLARGINE 100 UNITS/ML VIAL SQ SCH (20:40)
[2018-10-27] VITALS (14 sets, daily range): BP systolic 121–157; BP diastolic 75–95
[2018-10-27] MEDS: SODIUM CHLORIDE 0.9% 1000ML 1,000 ML IV SCH ×3 (01:29→23:03)
[2018-10-27 05:33] LABS: BASOPHILS % 0.4 % (0.0-1.0); EOSINOPHILS # (AUTO) 0.2 (0.0-0.4); EOSINOPHILS % 2.6 % (0.0-6.0); HEMATOCRIT 39.4 % (38.2-49.6); HEMOGLOBIN 13.9 g/dL (14.0-18.0); LYMPHOCYTES % 26.4 % (18.0-39.1); MEAN CORPUSCULAR HEMOGLOBIN 30.7 pg (28-32); MEAN CORPUSCULAR HGB CONC 35.3 g/dL (31-35); MONOCYTES % 13.5 % (4.4-11.3); NEUTROPHILS # (AUTO) 4.3 (2.1-6.9); NEUTROPHILS % 56.3 % (38.7-80.0); PLATELET COUNT 221 x10e3/uL (140-360); RED BLOOD COUNT 4.53 x10e6/uL (4.3-5.7); RED CELL DISTRIBUTION WIDTH 12.6 % (11.7-14.4)
[2018-10-27 05:37] LABS: INR 0.97; PROTHROMBIN TIME 13.4 seconds (11.9-14.5)
[2018-10-27 05:38] LABS: PARTIAL THROMBOPLASTIN TIME 26.7 seconds (23.8-35.5)
[2018-10-27 05:48] LABS: CALCIUM 8.6 mg/dL (8.4-10.2); CREATININE, SERUM 2.4 mg/dL (0.72-1.25); MAGNESIUM 2.2 MG/DL (1.3-2.1); PHOSPHORUS 2.6 MG/DL (2.3-4.7)
[2018-10-27] MEDS: INSULIN LISPRO 100 UNIT/1 ML 3ML VIAL SQ SCH ×7 (08:04→21:12)
[2018-10-27] MEDS: CEFEPIME 2 GM/NS 0.9% 100 ML 100 ML IV SCH ×2 (08:11→20:09)
[2018-10-27] MEDS: CYANOCOBALAMIN 1,000 MCG TAB PO SCH (08:45)
[2018-10-27] MEDS: FLUOXETINE HCL 20 MG CAP PO SCH (08:45)
[2018-10-27] MEDS: PANTOPRAZOLE SOD 40 MG TABEC PO SCH (08:45)
[2018-10-27] MEDS: LIDOCAINE 5% PATCH TP SCH (08:45)
[2018-10-27] MEDS: LOPERAMIDE HCL 2 MG CAP PO PRN (10:36)
--- NOTE | 2018-10-27 11:23 | NUR ---
HD line removed from right ij per MD order. no s/s bleeding or hematoma noted. pt tolerated line removal well. nsg report given to Peggy RN for transfer to med surg 1 room 106
--- NOTE | 2018-10-27 11:50 | NUR ---
received pt in wheelchair. safely transferred to bed. patient able to ambulate independently. denies pain, Resp even and unlabored. oriented to room and use of call light, call light placed within reach. and brother at bedside.
--- NOTE | 2018-10-27 18:33 | Progress Note ---
DATE: Internal Medicine Progress Note SUBJECTIVE: The patient is doing well. No significant complaint. PHYSICAL EXAMINATION: HEART: Showed regular rhythm. No murmur or added sound. LUNGS: Clear bilaterally. ABDOMEN: Soft. VITAL SIGNS: Blood pressure 157/92, temperature , heart rate 65 per minute, respiratory rate 21 per minute, oxygen saturation 99%. LABORATORY DATA: BMP; sodium 137, potassium 4.0, chloride 108, CO2 of 20, BUN 50, creatinine 2.40, glucose 191. On the CBC, white blood count 7.58, hemoglobin 13.9, hematocrit 39.4, platelet count 251,000, PT 13.4, INR 0.97, PTT 26.7. AST 14, ALT 19, total bilirubin 0.6, alkaline phosphatase 85. IMPRESSION: 1. Diabetic ketoacidosis. 2. Diabetes mellitus type 2 with chronic renal insufficiency. 3. Acute on chronic renal insufficiency stage IV, slowly resolving. 4. Obesity. 5. Vomiting. 6. Abdominal pain. PLAN OF TREATMENT: Continue cefepime 2 g IV twice a day. Continue with monitoring blood sugar before meals and at bedtime. Fluoxetine 60 mg daily. Continue Lomotil 1 tablet three times a day as needed for diarrhea. Continue Humalog 7 units before meals. Continue Protonix 40 mg daily, loperamide 2 mg as needed for diarrhea, melatonin 5 mg at bedtime. Continue with Lantus 13 units at bedtime, prazosin 2 mg at bedtime, vitamin B12 1000 mcg daily, and Zofran 4 mg IV q.4 hours as needed. So far, the patient had a dialysis catheter removed. BUN and creatinine are slowly improving. I reinforced the fact to the patient that the patient is to be on a very strict diabetic diet to try to get a tight control of the blood sugar. Blood sugar should be between 80 and 120 before meals to prevent any farther kidney damage. The patient understands that. We are going to hopefully discharge the patient on prednisone. Diabetes education in progress. MD JARRETT Malave/MODL /[id number]
[2018-10-27] MEDS: PRAZOSIN HCL 1 MG CAP PO SCH (21:09)
[2018-10-27] MEDS: INSULIN GLARGINE 100 UNITS/ML VIAL SQ SCH (21:12)
--- NOTE | 2018-10-27 22:33 | NUR ---
Patient received lying in bed. AAO x 3. Patient had no complaints o pain. Respirations even and non-labored. Fall precautions implemented. Patient instructed to call for assistance when needed. Call light within reach.
[2018-10-28 00:14] VITALS: BP 134/81
[2018-10-28 00:30] VITALS: BP 134/81
[2018-10-28 05:02] VITALS: BP 139/84
[2018-10-28 05:40] LABS: BASOPHILS % 0.4 % (0.0-1.0); EOSINOPHILS # (AUTO) 0.3 (0.0-0.4); EOSINOPHILS % 3.8 % (0.0-6.0); HEMATOCRIT 37.9 % (38.2-49.6); LYMPHOCYTES # (AUTO) 1.6 (1.0-3.2); MEAN CORPUSCULAR HEMOGLOBIN 30.4 pg (28-32); MEAN CORPUSCULAR HGB CONC 34.3 g/dL (31-35); MEAN CORPUSCULAR VOLUME 88.6 fL (81-99); MONOCYTES # (AUTO) 0.9 (0.2-0.8); NEUTROPHILS # (AUTO) 4.1 (2.1-6.9); NEUTROPHILS % 59.2 % (38.7-80.0); PLATELET COUNT 217 x10e3/uL (140-360); RED BLOOD COUNT 4.28 x10e6/uL (4.3-5.7); RED CELL DISTRIBUTION WIDTH 12.4 % (11.7-14.4)
[2018-10-28 06:02] LABS: ANION GAP 11.9 mmol/L (8-16); CALCIUM 8.7 mg/dL (8.4-10.2); CREATININE, SERUM 1.82 mg/dL (0.72-1.25); POTASSIUM 3.9 mmol/L (3.5-5.1)
--- NOTE | 2018-10-28 06:43 | NUR ---
Walking rounds done. Shift report given to oncoming nurse.
[2018-10-28] MEDS: INSULIN LISPRO 100 UNIT/1 ML 3ML VIAL SQ SCH ×4 (07:30→11:25)
[2018-10-28] MEDS: CEFEPIME 2 GM/NS 0.9% 100 ML 100 ML IV SCH (07:35)
[2018-10-28 08:00] VITALS: BP 160/98
[2018-10-28 08:30] VITALS: BP 160/98
[2018-10-28] MEDS: CYANOCOBALAMIN 1,000 MCG TAB PO SCH (08:40)
[2018-10-28] MEDS: FLUOXETINE HCL 20 MG CAP PO SCH (08:40)
[2018-10-28] MEDS: PANTOPRAZOLE SOD 40 MG TABEC PO SCH (08:40)
[2018-10-28] MEDS: LIDOCAINE 5% PATCH TP SCH (08:40)
[2018-10-28] MEDS ORDERED: AMLODIPINE BESYLATE 5 MG TAB PO SCH (09:00)
[2018-10-28] MEDS ORDERED: NORVASC5 MG PO (12:16)
[2018-10-28 12:27] VITALS: BP 145/81
--- NOTE | 2018-10-28 12:30 | NUR ---
patient alert and oriented. discharge instructions given at this time, patient verbalized understanding. IV discontinued, catheter in tact and small dressing applied. patient wanting to ambulate out to personal auto for to drive home.
--- NOTE | 2018-10-29 06:29 | Discharge Summary ---
HOSPITAL COURSE: A 48-year-old male with past medical history positive for diabetes, hypertension. The patient came to the hospital on DKA. He was started on insulin drip. His renal insufficiency got worse. He has had a dialysis catheter placed. Then later on, the blood sugar improved. Kidney function improved. The dialysis catheter was removed. The patient was switched to a regimen with Humalog and Lantus. The patient was transferred from the ICU to the medical floor. He is doing a lot better right now. Asymptomatic. The BUN and creatinine are much better. The patient is going home. PHYSICAL EXAMINATION: HEART: Showed regular rhythm. Normal S1, S2 sound. LUNGS: Clear bilaterally. ABDOMEN: Soft. EXTREMITIES: Show no evidence of cyanosis, edema, or trauma. LABORATORY DATA: On the BMP, sodium 138, potassium 3.9, chloride 110, CO2 of 20, BUN 41, creatinine 1.82, glucose 155. On the CBC, white blood count 6.91, hemoglobin 13.0, hematocrit 37.9, platelet count 217,000. PT is 13.4, INR 0.97, PTT 26.7. AST 14, ALT 19, total bilirubin 0.6, alkaline phosphatase 85. IMPRESSION: 1. Diabetic ketoacidosis with chronic renal insufficiency. 2. Acute on chronic renal failure, stage 3 to 4. 3. Obesity. 4. Hypertension with renal insufficiency. PLAN OF TREATMENT: He is going to be discharged home on the following medications: Protonix 40 mg daily, amlodipine we are going to increase it to 10 mg daily. Continue Lantus 13 units at bedtime and Humalog 7 units before meals. Continue fluoxetine 60 mg daily, prazosin 2 mg daily that he was taking at home. He is taking vitamin B12 1000 mcg daily. Follow up with me in a couple of weeks. Follow up with Dr. Vincent in two weeks. Diet, 1800-calorie ADA, renal diet. The patient already received teaching for diabetes. Lucas Lorenzo MD LAS/MODL /[id number]
== END 2018-10-28 12:48 | disposition home or self-care (01) | DRG 637 ==
LOC: ER 18:23 → ERHOLD 21:08 → ICU 23:03 → MED/SURG 10-27 11:23
PROVIDERS: ADMIT Internal Medicine; ATTEND Internal Medicine
PROC: 05HM33Z Insertion of Infusion Device into Right Internal Jugular Vein, Percutaneous Approach (ICD-10-PCS; principal; 2018-10-25)
DX: E11.10 Type 2 diabetes mellitus with ketoacidosis without coma (principal); N17.0 Acute kidney failure with tubular necrosis; N18.4 Chronic kidney disease, stage 4 (severe); E87.1 Hypo-osmolality and hyponatremia; E86.0 Dehydration; E11.22 Type 2 diabetes mellitus with diabetic chronic kidney disease; I12.9 Hypertensive chronic kidney disease with stage 1 through stage 4 chronic kidney disease, or unspecified chronic kidney disease; E66.9 Obesity, unspecified; Z68.34 Body mass index [BMI] 34.0-34.9, adult; E78.5 Hyperlipidemia, unspecified; R19.7 Diarrhea, unspecified; E87.6 Hypokalemia; E83.52 Hypercalcemia; F41.8 Other specified anxiety disorders; F43.10 Post-traumatic stress disorder, unspecified; F17.220 Nicotine dependence, chewing tobacco, uncomplicated; N40.0 Benign prostatic hyperplasia without lower urinary tract symptoms; D64.9 Anemia, unspecified; E11.42 Type 2 diabetes mellitus with diabetic polyneuropathy; Z79.84 Long term (current) use of oral hypoglycemic drugs
CPT/HCPCS: 36415; 36556; 36600; 71045; 74176; 74470; 76937; 77001; 80048; 80053; 80061; 80307; 81001; 82150; 82550; 82553; 82570; 82805; 82948; 83036; 83605; 83615; 83690; 83735; 83880; 84100; 84156; 84300; 84484; 85025; 85610; 85730; 87040; 87086; 93005; 96374; 99285; C1769; J1815; J2001; J2405; J2550; J3370; J3480; J7030

== ENCOUNTER 2020-04-03 16:23 | Emergency (ER) | payer OTHER ==
[~2020-04-03] VITALS: Ht 175.3 cm; Wt 107.0 kg
[~2020-04-03 16:23] MED LIST: FLUOXETINE HCL20 M1 PO; GLIPIZIDE5 MG PO; LISINOPRIL10 MG PO; MELATONIN3 M1 PO; METFORMIN HCL500 MG PO; NORVASC5 MG PO; OMEPRAZOLE40 MG; PRAZOSIN HCL2 MG PO; SIMVASTATIN40 MG PO; VITAMIN B-121000 MCG PO; alogliptin PO
--- NOTE | 2020-04-03 17:05 | NUR ---
Patient reports to staff that he received a call from his surgeon and he was told to come to the hospital where he had surgery. Patient states he is going to transport himself there. Dr. Chaves made aware and the patient is going to be discharged from here to go there per his surgeon
--- NOTE | 2020-04-03 17:10 | Emergency Department Note ---
History of Present Illnes History of Present Illness Chief Complaint: General Medicine Complaints History of Present Illness This is a 50 year old male Patient in from home with complaints of severe constipation and abdominal pain that started after he had shoulder surgery on Monday03/31/2020. Patient states he has been taking pain medication due to the shoulder surgery. Patient has tried stool softeners, fleet enema, mag citrate and prune juice with no relief. Patient states last bowel movement was Monday evening 03/30/2020. Patient denies history of constipation. Historian: Patient Arrival Mode: Car Lobby Porter Required: No Onset (how long ago): day(s) (3) Location: ABD Quality: CONSTIPATION Radiation: Reports non-radiation Severity: severe Onset quality: gradual Timing of current episode: constant Progression: unchanged Chronicity: new Context: Reports recent surgery; Denies recent illness Relieving factors: none Exacerbating factors: none Associated symptoms: Reports denies other symptoms Past Medical/Family History Physician Review I have reviewed the patient's past medical and family history. Any updates have been documented here. Past Medical History Recent Fever: No Clinical Suspicion of Infectio: No New/Unexplained Change in Ment: No Past Medical History: Hypertension, Diabetes, Anxiety, Depression, Hyperlipedemia Other Medical History: rheumatoid Athritis Past Surgical History: Hip Replacement, Orthopedic Implants Other Surgery: BILATERAL HIP REPLACEMENT Shoulder replacement Social History Smoking Cessation: Former smoker Counseling Performed: No Alcohol Use: Social Any Illegal Drug Use: No TB Exposure/Symptoms: No Physically hurt or threatened: No Family History Family history of heart diseas: No Other Last Tetanus: UTD Any Pre-Existing Lines (PICC,: No Review of Systems Review of Systems Constitutional: Reports no symptoms EENTM: Reports no symptoms Cardiovascular: Reports no symptoms Respiratory: Reports no symptoms Gastrointestinal: Reports as per HPI Genitourinary: Reports no symptoms Musculoskeletal: Reports as per HPI Integumentary: Reports no symptoms Neurological: Reports no symptoms Psychological: Reports no symptoms Endocrine: Reports no symptoms Hematological/Lymphatic: Reports no symptoms Physical Exam Related Data Allergies: Coded Allergies: No Known Allergies (Unverified , 10/23/18) Triage Vital Signs Vital Signs Date Time Temp Pulse Resp B/P (MAP) Pulse Ox O2 Delivery O2 Flow Rate FiO2 04/03/20 16:44 98.6 82 16 110/76 97 Room Air Vital signs reviewed: Yes Physical Exam CONSTITUTIONAL Constitutional: Present well-developed, Present well-nourished HENT HENT: Present normocephalic, Present atraumatic, Present oropharynx clear/moist, Present nose normal HENT L/R: Present left ext ear normal, Present right ext ear normal EYES Eyes: Reports PERRL, Reports conjunctivae normal NECK Neck: Present ROM normal PULMONARY Pulmonary: Present effort normal, Present breath sounds normal CARDIOVASCULAR Cardiovascular: Present regular rhythm, Present heart sounds normal, Present capillary refill normal, Present normal rate GASTROINTESTINAL Abdominal: Present soft, Present bowel sounds normal, Present tender (MILD DIFFUSE TTP, NO R/G) GENITOURINARY Genitourinary: Present exam deferred SKIN Skin: Present warm, Present dry MUSCULOSKELETAL Musculoskeletal: Present other (LEFT SHOULDER SLING) NEUROLOGICAL Neurological: Present alert, Present oriented x 3, Present no gross motor or sensory deficits PSYCHOLOGICAL Psychological: Present mood/affect normal, Present judgement normal Assessment & Plan Medical Decision Making MDM CONSTIPATION - CHECK KUB Reassessment Reassessment PT RECEIVED A CALL-BACK FROM HIS ORTHO SURGEON WHO TOLD HIM TO COME TO THE HOSPITAL WHERE SURGERY WAS DONE SO HE COULD SEE [facility] FROM MY CARE Assessment & Plan Final Impression: (1) Constipation Depart Disposition: HOME, SELF-CARE Last Vital Signs Date Time Temp Pulse Resp B/P (MAP) Pulse Ox O2 Delivery O2 Flow Rate FiO2 04/03/20 16:44 98.6 82 16 110/76 97 Room Air Home Meds Reported Medications Amlodipine Besylate (NORVASC) 5 Mg Tab, 10 MG PO DAILY, #30 TAB 1 Refill 10/28/18 Cyanocobalamin (VITAMIN B-12) 1,000 Mcg Tab, 1000 MCG PO DAILY, #30 TAB 10/24/18 Fluoxetine Hcl (FLUOXETINE HCL) 20 Mg Tablet, 60 MG PO DAILY 10/24/18 [alogliptin] No Conflict Check, 25 MG PO DAILY 10/24/18 Prazosin Hcl (PRAZOSIN HCL) 2 Mg Capsule, 2 MG PO HS 10/24/18 Omeprazole (OMEPRAZOLE) 40 Mg Capsule. 10/23/18 Melatonin (MELATONIN) 3 Mg Tablet.er, 5 MG PO 10/23/18 Lisinopril (LISINOPRIL) 10 Mg Tablet, 10 MG PO DAILY, #30 TAB 10/23/18 Simvastatin (SIMVASTATIN) 40 Mg Tablet, 40 MG PO 2100, #30 TAB 10/23/18 YURIY MORSE MD Apr 03, 2020 17:10
--- OUTSIDE RECORDS SUMMARY | 2020-04-04 10:13 | XMS REPORT | Continuity of Care Document ---
Author Author [facility] t Organization [facility] Address [address] [place] [address] Phone Unavailable Care Team Providers Care Scheduling Coordinator Name Role Phone NONSTAFF PCP Unavailable SAMEERA, LOUIS Attphys Unavailable SAMEERA, LOUIS Admphys Unavailable Payers Payer Name Policy Type Policy Number Effective Date Expiration Date Danie Tse [facility] [id number] 2019 00:00:00 [facility] Miscellaneous Hmo [id number] [facility] Problems Condition Name Condition Details Condition Category Status Onset Date Resolution Date Last Treatment Date Treating Clinician Comments Source Acute renal failure Acute renal failure Problem Active [facility] Diabetic ketoacidosis DKA (diabetic ketoacidoses) Problem Active [facility] Dehydration Dehydration Problem Active [facility] Hypercalcemia Hypercalcemia Problem Active [facility] Vomiting and diarrhea Vomiting and diarrhea Problem Active [facility] Constipation Problem Active [facility] Allergies, Adverse Reactions, Alerts This patient has no known allergies or adverse reactions. Social History Social Habit Start Date Stop Date Quantity Comments Source Sex Assigned At 1970 00:00:00 1970 00:00:00 Male [facility] Medications Ordered Medication Name Filled Medication Name Start Date Stop Da te Current Medication? Ordering Clinician Indication Dosage Frequency Signature (SIG) Comments Components Source Alogliptin Alogliptin Yes 25 Daily [facility] Amlodipine Besylate (Norvasc) 5 Mg TAB Amlodipine Besylate (Norv asc) 5 Mg TAB Yes 10 Daily [facility] Cyanocobalamin (Vitamin B-12) 1,000 Mcg TAB Cyanocobal morin (Vitamin B-12) 1,000 Mcg TAB Yes 1000 Daily [facility] Fluoxetine Hcl Fluoxetine Hcl Yes 60 Daily [facility] Lisinopril Lisinopril Yes 10 Daily [facility] Melatonin Melatonin Yes 5 [facility] Omeprazole Omeprazole Yes [facility] Prazosin Hcl Prazosin Hcl Yes 2 Bedtime [facility] Simvastatin Simvastatin Yes 40 Today At 9:00PM [facility] Glipizide Glipizide 2018-10-28 00:00:00 No 10 Daily [facility] Metformin Hcl Metformin Hcl 2018-10-28 00:00:00 No 1000 Twice A Day [facility] Vital Signs Vital Name Observation Time Observation Value Comments Source Oxygen saturation by Pulse oximetry 2020-04-03 16:44:00 97 /min [facility] Weight 2020-04-03 16:44:00 236 [lb_av] [facility] BMI (Body Mass Index) 2020-04-03 16:44:00 34.9 kg/m2 [facility] Procedures This patient has no known procedures. Plan of Care Planned Activity Planned Date Details Comments Source Instructions Constipation - Adult [facility] Encounters Start Date/Time End Date/Time Encounter Type Admission Type Attendi [facility] Emergency Department Facility Care Department Encounter ID Source 2020-04-03 17:08:00 2020-04-03 17:12:00 Departed Emergency Room [facility] [id number] [facility] dical [place] 2018-10-23 21:08:00 2018-10-28 12:48:00 Discharged Inpatient 1 LOUIS BRASHER [facility] [id number] [facility] Results Test Description Test Time Test Comments Results Result Comments Source Sodium Level 2018-10-28 06:04:00 Test Item Sodium Level (test code = 2951-2) 138 136-145 [facility] AmericaPotassium Odzyu2130-00-54 06:04:00* Test Item Value Reference Range Interpretation Comments Potassium Level (test code = 2823-3) 3.9 3.5-5.1 [facility] AmericaChloride Rvdlq4966-50-02 06:04:00* Test Item Value Reference Range Interpretation Comments Chloride Level (test code = 2075-0) 110 98-107 H [facility] AmericaCarbon Dioxide Texew4458-97-81 06:04:00* Test Item Value Reference Range Interpretation Comments Carbon Dioxide Level (test code = 2028-9) 20 22-29 L [facility] AmericaAnion Kfb1962-15-59 06:04:00* Test Item Value Reference Range Interpretation Comments Anion Gap (test code = 26754-3) 11.9 8-16 [facility] AmericaBlood Urea Rffrvyjn8158-16-63 06:04:00* Test Item Value Reference Range Interpretation Comments Blood Urea Nitrogen (test code = 3094-0) 41 7-26 H [facility] AmericaCreatinine2019-06-16 06:04:00* Test Item Value Reference Range Interpretation Comments Creatinine (test code = 2160-0) 1.82 0.72-1.25 H [facility] AmericaBUN/Creatinine Panfr5612-30-79 06:04:00* Test Item Value Reference Range Interpretation Comments BUN/Creatinine Ratio (test code = 3097-3) 23 6-25 [facility] AmericaEstimat Glomerular Filtration Rate 2018-10-28 06:04:00* Test Item Value Reference Range Interpretation Comments Estimat Glomerular Filtration Rate (test code = 661012408) 40 >60 L Ranges were taken from the National Kidney Disease Education Program and the [employer] literature.Reference ranges:60 or greater: Vrcjby98-25 ( for 3 consecutive months): Chronic kidney disease 15 or less: Kidney failureSurgery Specialty Hospitals of AmericaGlucose Jnqrj4378-75-81 06:04:00* Test Item Value Reference Range Interpretation Comments Glucose Level (test code = QAC9769) 155 74-118 H [facility] AmericaCalcium Jwpes1519-94-19 06:04:00* Test Item Value Reference Range Interpretation Comments Calcium Level (test code = 90188-9) 8.7 8.4-10.2 [facility] AmericaWhite Blood Wbfaz2294-17-90 05:51:00* Test Item Value Reference Range Interpretation Comments White Blood Count (test code = 6690-2) 6.91 4.8-10.8 [facility]als of AmericaRed Blood Bdwou1662-47-83 05:51:00* Test Item Value Reference Range Interpretation Comments Red Blood Count (test code = 789-8) 4.28 4.3-5.7 L [facility] AmericaHemoglobin2019-06-16 05:51:00* Test Item Value Reference Range Interpretation Comments Hemoglobin (test code = 98115-3) 13.0 14.0-18.0 L [facility] of AmericaHematocrit2019-06-16 05:51:00* Test Item Value Reference Range Interpretation Comments Hematocrit (test code = 4544-3) 37.9 38.2-49.6 L [facility]als of AmericaMean Corpuscular Lxhhjq0010-16-00 05:51:00* Test Item Value Reference Range Interpretation Comments Mean Corpuscular Volume (test code = 787-2) 88.6 81-99 [facility] Hospitals of AmericaMean Corpuscular Idmgqdokse2458-86-61 05:51:00* Test Item Value Reference Range Interpretation Comments Mean Corpuscular Hemoglobin (test code = 785-6) 30.4 28-32 [facility] Hospitals of AmericaMean Corpuscular Hemoglobin Concent 2018-10-28 05:51:00* Test Item Value Reference Range Interpretation Comments Mean Corpuscular Hemoglobin Concent (test code = 786-4) 34.3 31-35 [facility]als of AmericaRed Cell Distribution Vwmji9565-06-08 05:51:00* Test Item Value Reference Range Interpretation Comments Red Cell Distribution Width (test code = 31464-3) 12.4 11.7 -14.4 [facility] Hospitals of AmericaPlatelet Znnbe7219-19-17 05:51:00* Test Item Value Reference Range Interpretation Comments Platelet Count (test code = 777-3) 217 140-360 [facility] AmericaNeutrophils (%) (Auto)2018-10-28 05:51:00 * Test Item Value Reference Range Interpretation Comments Neutrophils (%) (Auto) (test code = 86418-8) 59.2 38.7-80.0 [facility] AmericaLymphocytes (%) (Auto)2018-10-28 05:51:00 * Test Item Value Reference Range Interpretation Comments Lymphocytes (%) (Auto) (test code = 736-9) 23.0 18.0-39.1 [facility] AmericaMonocytes (%) (Auto)2018-10-28 05:51:00* Test Item Value Reference Range Interpretation Comments Monocytes (%) (Auto) (test code = 5905-5) 13.0 4.4-11.3 H [facility] of AmericaEosinophils (%) (Auto)2018-10-28 05:51:00 * Test Item Value Reference Range Interpretation Comments Eosinophils (%) (Auto) (test code = 713-8) 3.8 0.0-6.0 [facility] AmericaBasophils (%) (Auto)2018-10-28 05:51:00* Test Item Value Reference Range Interpretation Comments Basophils (%) (Auto) (test code = 706-2) 0.4 0.0-1.0 [facility]als of AmericaIM GRANULOCYTES %2018-10-28 05:51:00* Test Item Value Reference Range Interpretation Comments IM GRANULOCYTES % (test code = IM GRANULOCYTES %) 0.6 0.0- 1.0 [facility] AmericaNeutrophils # (Auto)2018-10-28 05:51:00* Test Item Value Reference Range Interpretation Comments Neutrophils # (Auto) (test code = 751-8) 4.1 2.1-6.9 [facility] AmericaLymphocytes # (Auto)2018-10-28 05:51:00* Test Item Value Reference Range Interpretation Comments Lymphocytes # (Auto) (test code = 39001-5) 1.6 1.0-3.2 [facility] AmericaMonocytes # (Auto)2018-10-28 05:51:00* Test Item Value Reference Range Interpretation Comments Monocytes # (Auto) (test code = 742-7) 0.9 0.2-0.8 H [facility] AmericaEosinophils # (Auto)2018-10-28 05:51:00* Test Item Value Reference Range Interpretation Comments Eosinophils # (Auto) (test code = 711-2) 0.3 0.0-0.4 [facility] AmericaBasophils # (Auto)2018-10-28 05:51:00* Test Item Value Reference Range Interpretation Comments Basophils # (Auto) (test code = 704-7) 0.0 0.0-0.1 [facility] of AmericaAbsolute Immature Granulocyte (auto 2018-10-28 05:51:00* Test Item Value Reference Range Interpretation Comments Absolute Immature Granulocyte (auto (dianna t code = Absolute Immature Granulocyte (auto) 0.04 0-0.1 [facility] of AmericaBedside Pahybcj9954-82-17 05:33:00* Test Item Value Reference Range Interpretation Comments Bedside Glucose (test code = 27721-0) 177 70-120 H Meter ID: [id number] Specialty Hospitals of AmericaProthrombin Time 2018-10-27 06:01:00* Test Item Value Reference Range Interpretation Comments Prothrombin Time (test code = 5902-2) 13.4 11.9-14.5 [facility] AmericaProthromb Time International Ratio 2018-10-27 06:01:00* Test Item Value Reference Range Interpretation Comments Prothromb Time International Ratio (test code = 6301-6) 0.97 Oral Anticoagulant Therapy INR Values:1. Low Intensity Therapy 1.5 - 2.02 . Moderate Intensity Therapy 2.0 - 3.03. High Intensity Therapy(1) 2.5 - 3. 54. High Intensity Therapy(2) 3.0 - 4.05. Panic Value INR > 5.0 [facility]als of AmericaActivated Partial Thromboplast Time 2018-10-27 06:01:00* Test Item Value Reference Range Interpretation Comments Activated Partial Thromboplast Time (test code = 27124-8) 26.7 23.8-35.5 [facility] of AmericaPhosphorus Fueir9853-86-70 05:51:00* Test Item Value Reference Range Interpretation Comments Phosphorus Level (test code = JYP3993) 2.6 2.3-4.7 [facility] of AmericaMagnesium Npjjo6845-39-85 05:51:00* Test Item Value Reference Range Interpretation Comments Magnesium Level (test code = 54716-3) 2.2 1.3-2.1 H [facility]als of AmericaBlood Yrvkzgo7907-64-38 20:31:00* Test Item Value Reference Range Interpretation Comments Blood Culture (test code = 43527062) NO GROWTH AFTER 72 HOURS [facility] of AmericaTotal Udsaefbdq4725-43-83 16:29:00* Test Item Value Reference Range Interpretation Comments Total Bilirubin (test code = 1975-2) 0.6 0.2-1.2 [facility] of AmericaAspartate Amino Transf (AST/SGOT) 2018-10-26 16:29:00* Test Item Value Reference Range Interpretation Comments Aspartate Amino Transf (AST/SGOT) (test code = Aspartate Amino Transf (AST/SGOT)) 14 5-34 [facility] Hospitals of AmericaAlanine Aminotransferase (ALT/SGPT) 2018-10-26 16:29:00* Test Item Value Reference Range Interpretation Comments Alanine Aminotransferase (ALT/SGPT) (test code = 1742-6) 19 0-55 [facility] of AmericaTotal Peopcnu0930-33-95 16:29:00* Test Item Value Reference Range Interpretation Comments Total Protein (test code = 2885-2) 6.1 6.5-8.1 L [facility] AmericaAlbumin2019-06-14 16:29:00* Test Item Value Reference Range Interpretation Comments Albumin (test code = 1751-7) 3.1 3.5-5.0 L [facility] AmericaGlobulin2019-06-14 16:29:00* Test Item Value Reference Range Interpretation Comments Globulin (test code = 29606-9) 3.0 2.3-3.5 [facility] AmericaAlbumin/Globulin Truwm7360-96-84 16:29:00 * Test Item Value Reference Range Interpretation Comments Albumin/Globulin Ratio (test code = 1759-0) 1.0 0.8-2.0 [facility] of AmericaAlkaline Cffmccmexdt0386-37-99 16:29:00* Test Item Value Reference Range Interpretation Comments Alkaline Phosphatase (test code = 6768-6) 85 40-150 [facility]als of AmericaLactate Etsjskftglcys2491-41-21 06:31:00 * Test Item Value Reference Range Interpretation Comments Lactate Dehydrogenase (test code = 402172577) 233 125-220 H [facility] of AmericaUS GUIDANCE FOR VASCULAR EDIOD0336-85-02 15:55:00 [facility] [address] [address] Patient Name: VERONICA COVINGTON JR MR #: [id number] : 1970 Age/Sex: 48/M Req #: [id number] Adm Physician: LOUIS BRASHER MD Ordered by: KESHIA SANDOVAL MD Report #: [id number] Location: ICU Room/Bed: ICU [facility] Procedure: [id number] US/US GUIDANCE FOR VASCULAR ACCES Exam Date: 10/25/18 Exam Time: 1445 REPORT STATUS: S igned Exam: Non tunneled right IJ hemodialysis catheter placement. Histo ry:HOMER Comparison: None available Findings: Informed consent was obtai from the patient after a formal timeout. Ultrasound was utilized for puncture of the right internal jugular vein following sterile preparation with full barrier technique and 1% lidocaine. Permanent record for the radiologic record was obtained and stored. Following puncture with a 21-gauge skinny n eedle a 0.018 " wire was placed and then a micropuncture sheath. Fluoroscopy w as utilized to ascertain wire placement. Through the micropuncture sheath a 0. 035 " Amplatz superstiff wire was placed centrally. Serial dilatation was acco mplished. A 13 Cameroonian 20 cm long non tunneled hemodialysis catheter was then p laced over the Amplatz superstiff wire. Patient tolerated the procedure w ell. Fluoroscopy time: 0.1 min Total dose: 0.154 Gy.cm2 Impressio n: 1. Right IJ non tunneled hemodialysis catheter placement utilizing ultra sound and fluoroscopy. 2. The line is okay for immediate use. Signed by : Dr. Cyril Granado DO on 10/25/2018 4:02 PM Dictated By: CYRIL Fuentes 01 Transcribed By: LIZZ on 10/25/181601 COPY TO: KESHIA SANDOVAL MD FLUORO GUIDANCE [address]/EOB1255-46-23 15:55:[address] [address] Patient Name: VERONICA COVINGTON JR MR #: [id number] : 1970 Age/Sex: 48/M Req #: [id number] Adm Physician: LOUIS BRASHER MD Ordered by: KESHIA SANDOVAL MD Report #: [id number] Location: ICU Room/Bed: [place] [address] Procedure: [id number] DX/FLUORO GUIDANCE [address] PL/REM Exam Date: Exam Time: REPORT STATUS: Signed Exa m: Non tunneled right IJ hemodialysis catheter placement. History:HOMER Comparison: None available Findings: Informed consent was obtained from the patient after a formal timeout. Ultrasound was utilized for puncture of the right internal jugular vein following sterile preparation with full yonis r technique and 1% lidocaine. Permanent record for the radiologic record was o btained and stored. Following puncture with a 21-gauge skinny needle a 0.01 8 " wire was placed and then a micropuncture sheath. Fluoroscopy was utilized to ascertain wire placement. Through the micropuncture sheath a 0.035 " Amplat z superstiff wire was placed centrally. Serial dilatation was accomplished. A 13 Cameroonian 20 cm long non tunneled hemodialysis catheter was then placed over t he Amplatz superstiff wire. Patient tolerated the procedure well. Fl uoroscopy time: 0.1 min Total dose: 0.154 Gy.cm2 Impression: 1. R ight IJ non tunneled hemodialysis catheter placement utilizing ultrasound and fluoroscopy. 2. The line is okay for immediate use. Signed by: Dr. Cyril Granado DO on 10/25/2018 4:02 PM Dictated By: CYRIL Brannon Signed By: CYRIL GRANADO DO on 10/25/18 1602 Transcribed By: LIZZ on 0 10/25/18 1602 COPY TO: KESHIA SANDOVAL MD NON-TUNNELLED CVC CATH RRCHABG3334-43-80 15:55:[address] [address] Patient Name: VERONICA COVINGTON JR MR #: [id number] : 1970 Age/Sex: 48/M Req #: [id number] Adm Physician: LOUIS BRASHER MD Ordered by: KESHIA SANDOVAL MD Report #: [id number] Location: ICU Room/Bed: ICU [facility] Procedure: IR/NON-TUNNELLED CVC CATH PLACMNT Exam Date: Exam Time: REPORT STATUS: Signed Exa m: Non tunneled right IJ hemodialysis catheter placement. History:HOMER Comparison: None available Findings: Informed consent was obtained from the patient after a formal timeout. Ultrasound was utilized for puncture of the right internal jugular vein following sterile preparation with full yonis r technique and 1% lidocaine. Permanent record for the radiologic record was o btained and stored. Following puncture with a 21-gauge skinny needle a 0.01 8 " wire was placed and then a micropuncture sheath. Fluoroscopy was utilized to ascertain wire placement. Through the micropuncture sheath a 0.035 " Amplat z superstiff wire was placed centrally. Serial dilatation was accomplished. A 13 Cameroonian 20 cm long non tunneled hemodialysis catheter was then placed over t he Amplatz superstiff wire. Patient tolerated the procedure well. Fl uoroscopy time: 0.1 min Total dose: 0.154 Gy.cm2 Impression: 1. R ight IJ non tunneled hemodialysis catheter placement utilizing ultrasound and fluoroscopy. 2. The line is okay for immediate use. Signed by: Dr. Cyril Granado DO on 10/25/2018 4:02 PM Dictated By: CYRIL Brannon Signed By: CYRIL GRANADO DO on 10/25/18 1602 Transcribed By: LIZZ on 0 10/25/18 1602 COPY TO: KESHIA SANDOVAL MD IR [id number] 15:55:00 [address] [address] Patient Name: VERONICA COVINGTON JR MR #: [id number] : 1970 Age/Sex: 48/M Req #: [id number] Adm Physician: LOUIS BRASHER MD Ordered by: KESHIA SANDOVAL MD Report #: [id number] Location: ICU Room/Bed: ICU [facility] Procedure: [id number] DX/IR CONSULT Exam Date: Exam Time: REPORT STATUS: Signed Exam: Non tunneled righ t IJ hemodialysis catheter placement. History:HOMER Comparison: None emilio ilable Findings: Informed consent was obtained from the patient after a for mal timeout. Ultrasound was utilized for puncture of the right internal j ugular vein following sterile preparation with full barrier technique and 1% l idocaine. Permanent record for the radiologic record was obtained and stored. Following puncture with a 21-gauge skinny needle a 0.018 " wire was placed and then a micropuncture sheath. Fluoroscopy was utilized to ascertain wire placement. Through the micropuncture sheath a 0.035 " Amplatz superstiff wire was placed centrally. Serial dilatation was accomplished. A 13 Cameroonian 20 cm lo ng non tunneled hemodialysis catheter was then placed over the Amplatz superst iff wire. Patient tolerated the procedure well. Fluoroscopy time: 0.1 min Total dose: 0.154 Gy.cm2 Impression: 1. Right IJ non tunneled hemodialysis catheter placement utilizing ultrasound and fluoroscopy. 2. Th e line is okay for immediate use. Signed by: Dr. Cyril Granado DO on 2018 4:02 PM Dictated By: CYRIL GRANADO DO 1602 Transcribed By: LIZZ on 10/25/18 1602 C OPY TO: KESHIA SANDOVAL MD Urine Random Total Pffqshx5663-40-36 19:59:00* Test Item Value Reference Range Interpretation Comments Urine Random Total Protein (test code = 2888-6) 47.2 1-14 H [facility] AmericaUrine Random Cyqvqy9072-81-27 19:59:00* Test Item Value Reference Range Interpretation Comments Urine Random Sodium (test code = 2955-3) 41 [facility] AmericaUrine Esdrsmusdd6944-42-74 19:59:00* Test Item Value Reference Range Interpretation Comments Urine Creatinine (test code = 2161-8) 193.93 63-166 H [facility] AmericaUrine Protein/Creatinine Wiity6361-54-32 19:59:00* Test Item Value Reference Range Interpretation Comments Urine Protein/Creatinine Ratio (test code = 26520-6) 0.00 [facility] AmericaHemoglobin A1c Qogljgn0886-95-99 15:16:00 * Test Item Value Reference Range Interpretation Comments Hemoglobin A1c Percent (test code = Hemoglobin A1c Percent) 7.5 4.0-7.0 H [facility] AmericaTriglycerides Whyzc1679-08-33 15:16:00* Test Item Value Reference Range Interpretation Comments Triglycerides Level (test code = 2571-8) 330 0-149 H [facility] AmericaCholesterol Slxmg5483-62-87 15:16:00* Test Item Value Reference Range Interpretation Comments Cholesterol Level (test code = 2093-3) 228 0-199 H Less than 200 mg/dL Low Ldjz886 - 239 mg/dL Borderline Utlu051 m g/dl and greater High Risk [facility] of AmericaLDL Yvlivndpfuq5869-87-40 15:16:00* Test Item Value Reference Range Interpretation Comments LDL Cholesterol (test code = 2089-1) 116 60-130 [facility] AmericaHDL Ryzdwirvapm7827-25-04 15:16:00* Test Item Value Reference Range Interpretation Comments HDL Cholesterol (test code = 2085-9) 46 40-60 [facility] AmericaCholesterol/HDL Luqsj0698-50-24 15:16:00 * Test Item Value Reference Range Interpretation Comments Cholesterol/HDL Ratio (test code = 9830-1) 5.0 3.9-4.7 H [facility] AmericaCreatine Kinase [id number] 14:05:00* Test Item Value Reference Range Interpretation Comments Creatine Kinase MB (test code = 16753-9) 2.60 0-5.0 [facility] AmericaTroponin C0888-26-76 14:05:00* Test Item Value Reference Range Interpretation Comments Troponin I (test code = CJM6721) < 0.001 0-0.300 [facility] AmericaCreatine Ceawfj7772-19-52 14:02:00* Test Item Value Reference Range Interpretation Comments Creatine Kinase (test code = 2157-6) 144 30-200 [facility] AmericaLactic Acid Uraad5503-37-54 02:51:00* Test Item Value Reference Range Interpretation Comments Lactic Acid Level (test code = Lactic Acid Level) 10.2 4.5- 19.8 [facility] of AmericaCT ABDOMEN/PELVIS ZV3802-70-68 23:14:00 [place] [address] [address] Patient Name: VERONICA COVINGTON JR MR #: [id number] : 1969 Age/Sex: 48/M Req #: [id number] Adm Physician: LOUIS BRASHER MD Ordered by: YURIY MORSE MD Report #: [id number] Location: ICU Room/Bed: [place] [address] Procedure: [id number] CT/CT ABDOMEN/PELVIS WO Exam Date: 10/23/18 Exam Saurav e: 2110 REPORT STATUS: Signed EX AM: CT Abdomen and Pelvis WITHOUT contrast INDICATION: Abdominal pain, nause a vomiting and diarrhea. Elevated WBC. COMPARISON: None. TECHNIQUE: Abdomen and pelvis were scanned utilizing a multidetector helical scanner from the jihan g base to the pubic symphysis without administration of IV contrast. Absence o f intravenous contrast decreases sensitivity for detection of focal lesions an d vascular pathology. Coronal and sagittal reformations were obtained. Routine protocol was performed. IV CONTRAST: None. Withheld due to renal insufficiency. ORAL CONTRAST: 900 cc of Gastrografin water mixtur e. RADIATION DOSE: Total DLP: 887.58 mGy*cm Estimat ed effective dose: (DLP x 0.015 x size factor) mSv COMPLICATIONS: None FINDINGS: LINES and TUBES: None. LOWER THORAX: Unremarkable HEPATOBILIARY: The liver is diffuse hypodense compared to the spleen, co nsistent with diffuse hepatic diffuse hepatic steatosis. No focal hepatic les ions. No biliary ductal dilation. GALLBLADDER: No radio-opaque stones or s ludge. No wall thickening. SPLEEN: No splenomegaly. PANCREAS: No foc al masses or ductal dilatation. ADRENALS: No adrenal nodules KID NEYS/URETERS: No hydronephrosis. No cystic or solid mass lesions. Punctate n onobstructing calculus in the interpolar region of the left kidney on coronal image 74. GI TRACT: No abnormal distention, wall thickening, or evidence of bowel obstruction. There few scattered diverticula in the sigmoid colon with out evidence of diverticulitis. Appendix is normal. PELVIC ORGANS/BLADDE R: No gross abnormality within limitations due to artifact from bilateral hip prosthesis. LYMPH NODES: No lymphadenopathy. VESSELS: There is mild at herosclerotic disease in the aorta and major arterial branches. PERITONEU M / RETROPERITONEUM: No free air or fluid. BONES: Bilateral total hip repla cement. Mild degenerative changes of the imaged thoracolumbar spine. SOF T TISSUES: Unremarkable. IMPRESSION: 1. No acute abdominal pelvic abn ormality. 2. Hepatic steatosis. Signed by: Clotilde Bojorquez on 10/23/2018 11:24 PM Dictated By: MEGAN MOONEY MD, MD 23 Transcribed By: LIZZ on 2323 COPY TO: YURIY MORSE MD Urine [id number] 23:00:00* Test Item Value Reference Range Interpretation Comments Urine WBC (test code = 5821-4) 6-10 0-5 [facility] [id number] 23:00:00* Test Item Value Reference Range Interpretation Comments Urine RBC (test code = 62264-6) 6-10 0-5 [facility] [id number] 23:00:00* Test Item Value Reference Range Interpretation Comments Urine Bacteria (test code = 67100-0) MANY NONE [facility] Epithelial [id number] 23:00:00 * Test Item Value Reference Range Interpretation Comments Urine Epithelial Cells (test code = 88527-5) FEW NONE [facility] Transitional Epithelial Cells 2018-10-23 23:00:00* Test Item Value Reference Range Interpretation Comments Urine Transitional Epithelial Cells (test code = 8249-5) FEW NONE [facility] Ammonium Biurate [id number] 23:00:00* Test Item Value Reference Range Interpretation Comments Urine Ammonium Biurate Crystals (test code = 5766-1) FEW N ONE [facility] Uric Acid [id number] 23:00:00* Test Item Value Reference Range Interpretation Comments Urine Uric Acid Crystals (test code = 5817-2) FEW FEW [facility] Hyaline [id number] 23:00:00* Test Item Value Reference Range Interpretation Comments Urine Hyaline Casts (test code = 96064-7) 2-5 0-1 [facility] [id number] 22:34:00* Test Item Value Reference Range Interpretation Comments Urine Color (test code = 5778-6) YELLOW YELLOW [facility] [id number] 22:34:00* Test Item Value Reference Range Interpretation Comments Urine Clarity (test code = 87086-7) CLOUDY CLEAR H [facility] Specific [id number] 22:34:00 * Test Item Value Reference Range Interpretation Comments Urine Specific [place] (test code = 5811-5) >=1.030 1.010-1.02 5 [facility] [id number] 22:34:00* Test Item Value Reference Range Interpretation Comments Urine pH (test code = 77999-5) 5 5-7 [facility] Leukocyte Lsbwmifw0772-30-34 22:34:00* Test Item Value Reference Range Interpretation Comments Urine Leukocyte Esterase (test code = 43156-2) NEGATIVE NEGATIV E [facility] [id number] 22:34:00* Test Item Value Reference Range Interpretation Comments Urine Nitrite (test code = 51543-5) NEGATIVE NEGATIVE [facility] [id number] 22:34:00* Test Item Value Reference Range Interpretation Comments Urine Protein (test code = 06657-4) 3+ NEGATIVE [facility] Glucose (UA)2018-10-23 22:34:00* Test Item Value Reference Range Interpretation Comments Urine Glucose (UA) (test code = 20571-1) 1+ NEGATIVE H [facility] [id number] 22:34:00* Test Item Value Reference Range Interpretation Comments Urine Ketones (test code = 38744-5) TRACE NEGATIVE H [facility] Cmzvmptnkxxy4859-05-65 22:34:00* Test Item Value Reference Range Interpretation Comments Urine Urobilinogen (test code = 96194-7) 0.2 0.2-1 [facility] [id number] 22:34:00* Test Item Value Reference Range Interpretation Comments Urine Bilirubin (test code = 1977-8) MODERATE NEGATIVE [facility] [id number] 22:34:00* Test Item Value Reference Range Interpretation Comments Urine Blood (test code = 14394-5) 1+ NEGATIVE [facility] America[facility] Blood [id number] 20:13:00* Test Item Value Reference Range Interpretation Comments Arterial Blood pH (test code = 2744-1) 7.11 7.31-7.41 LL Results called/[place] [address] on 10/23/18 by Paula VAZQUEZ.[facility] Blood Partial Pressure [id number] 20:13:00* Test Item Value Reference Range Interpretation Comments Arterial Blood Partial Pressure CO2 (test code = 2018-12) 26 41-51 L [facility] Partial Pressure O2 2018-10-23 20:13:00* Test Item Value Reference Range Interpretation Comments Arterial Blood Partial Pressure O2 (test code = 2018-12) 112 80-105 H [facility] Blood [id number] 20:13:00* Test Item Value Reference Range Interpretation Comments Arterial Blood HCO3 (test code = 1960-4) 8 23-28 L [facility] Blood Base Gajmjj3767-15-54 20:13:00* Test Item Value Reference Range Interpretation Comments Arterial Blood Base Excess (test code = 1925-7) -21.0 -2-3 L [facility] Blood Oxygen Saturation 2018-10-23 20:13:00* Test Item Value Reference Range Interpretation Comments Arterial Blood Oxygen Saturation (test code = 2708-6) 97.0 95-98 [facility] AmericaFiO22019-06-11 20:13:00* Test Item Value Reference Range Interpretation Comments FiO2 (test code = FiO2) 21 PT. ON RA, HAND DELIVERED TO DR. MORSESur[facility] AmericaB- Type Natriuretic [id number] 19:53:00* Test Item Value Reference Range Interpretation Comments B-Type Natriuretic Peptide (test code = 43545-4) < 10.0 0-100 [facility] AmericaAmylase [id number] 19:30:00* Test Item Value Reference Range Interpretation Comments Amylase Level (test code = 1798-8) 98 25-125 [facility] AmericaLipase2019-06-11 19:30:00* Test Item Value Reference Range Interpretation Comments Lipase (test code = 3040-3) 57 8-78 [facility] Opiates [id number] 19:20:00* Test Item Value Reference Range Interpretation Comments Urine Opiates Screen (test code = 94916-8) NEGATIVE NEGATIVE ALL TESTS PERFORMED MANUALLY ON [employer] TOX/SEE TESTSurgery Specialty Hospitals of AmericaUrine Barbiturates [id number] 19:20:00* Test Item Value Reference Range Interpretation Comments Urine Barbiturates Screen (test code = 287267715) NEGATIVE NEGA TIVE [facility] Phencyclidine [id number] 19:20:00* Test Item Value Reference Range Interpretation Comments Urine Phencyclidine Screen (test code = 32785-8) NEGATIVE NEGAT DERREK [facility] Amphetamines [id number] 19:20:00* Test Item Value Reference Range Interpretation Comments Urine Amphetamines Screen (test code = 14666-9) NEGATIVE NEGATI VE [facility] Methamphetamines [id number] 19:20:00* Test Item Value Reference Range Interpretation Comments Urine Methamphetamines Screen (test code = Urine Metha mphetamines Screen) NEGATIVE NEGATIVE [facility] Benzodiazepines [id number] 19:20:00* Test Item Value Reference Range Interpretation Comments Urine Benzodiazepines Screen (test code = 13177-6) NEGATIVE NEG ATIVE [facility] Cocaine [id number] 19:20:00* Test Item Value Reference Range Interpretation Comments Urine Cocaine Screen (test code = 3398-5) NEGATIVE NEGATIVE [facility] Cannabinoids [id number] 19:20:00* Test Item Value Reference Range Interpretation Comments Urine Cannabinoids Screen (test code = 26147-1) NEGATIVE NEGATI VE THESE RESULTS ARE FOR MEDICAL TREATMENT ONLYTHIS REPORT CONTAINS UNCONFIR MED SCREENING RESULTS*POSITIVE RESULTS WILL BE CONFIRMED BY REFERENCE LAB UPON R EQUEST CUT-OFFDRUG CLASS CONCENTRATION ng/mLAmphetamines 1000Methamphetamines 1000Cocaine 300Opiate 300Phencyc lidine 25Cannabinoid 50Barbiturates 300Benzodiazepine 300Methadone 300[facility] Methadone [id number] 19:20:00* Test Item Value Reference Range Interpretation Comments Urine Methadone Screen (test code = 76214-3) NEGATIVE NEGATIVE THESE RESULTS ARE FOR MEDICAL TREATMENT ONLYTHIS REPORT CONTAINS UNCONFIR MED SCREENING RESULTS*POSITIVE RESULTS WILL BE CONFIRMED BY REFERENCE LAB UPON R EQUEST CUT-OFFDRUG CLASS CONCENTRATION ng/mLAmphetamines 1000Methamphetamines 1000Cocaine Metabolite 300Opiate 300Phencyc lidine 25Cannabinoid 50Barbiturates 300Benzodiazepine 300Methadone 300[facility] HospitalCHE[facility]INGLE (PORTABLE)2018-10-23 19:16:00 [facility] [address] [place] [address] Patient Name: NADYA MULUGETAMARISA MR #: [id number] : 1970 Age/Sex: 48/M Req #: [id number] Adm Physician: Ordered by: SHARMIN RODARTE MD Report #: [id number] Location: ER Room/Bed: Procedure: [id number] DX/CHEST SINGLE (PORTABLE) Exam Date: 10/23/18 Exam Time: 1899 REPORT STATUS: Signed A single frontal view of the chest. HISTORY: Shortness of breath LELE RISON: None available. DISCUSSION: Portable technique, limits sens itivity of the exam. Soft tissue attenuation further limits sensitivity of the exam. Overlying monitoring leads. Tubes/Lines: None Lungs and pleura: The lungs are well inflated. No evidence of a consolidative pneumonia o r pulmonary alveolar edema. No definite pleural effusion or pneumothorax is id entified. Heart and mediastinum: The cardiomediastinal silhouette appea rs unremarkable. Bones and soft tissues: Appear unremarkable, given thi s limited exam. IMPRESSION: No acute radiographic abnormality. Signed by: Kaylie AlvarezODallin, M.M.M. on 10/23/2018 7:17 PM Dictated By: LONNIE MAGALLANES DO 16 COPY TO: SHARMIN RODARTE MD
== END 2020-04-03 17:12 | disposition home or self-care (01) ==
LOC: ER 17:08
DX: K59.00 Constipation, unspecified (principal); R10.9 Unspecified abdominal pain; I10 Essential (primary) hypertension; E11.9 Type 2 diabetes mellitus without complications; E78.5 Hyperlipidemia, unspecified; F41.9 Anxiety disorder, unspecified; M06.9 Rheumatoid arthritis, unspecified; Z96.643 Presence of artificial hip joint, bilateral
CPT/HCPCS: 99282